=== PATIENT | male | born 1960 | race Caucasian/White ===

== ENCOUNTER 2021-08-15 10:36 | Day surgery (SDC) | payer OTHER ==
--- NOTE | 2021-08-08 07:51 | HP ---
DATE OF SURGERY: 08/15/2021 HISTORY OF PRESENT ILLNESS: The patient presents with swelling and infection on his lip. It appears to have been an infected pimple. He has been on some Keflex and it has improved some. It does have a head on it. He was prescribed Cipro. He will be evaluated prior to surgery to see if this is something that needs removed. PAST MEDICAL HISTORY: None. PAST SURGICAL HISTORY: Hernia. ALLERGIES: NKDA. MEDICATIONS: None. FAMILY HISTORY: None. SOCIAL HISTORY: None. REVIEW OF SYSTEMS: CONSTITUTIONAL: Denies fever or chills. CHEST: Denies shortness of breath. CVS: Denies chest pain. ABDOMEN: Denies abdominal pain. PHYSICAL EXAMINATION: GENERAL: No acute distress. CHEST: Nonlabored. No shortness of breath. CVS: Regular rate and rhythm. ABDOMEN: Soft, nontender. IMPRESSION: Lip cyst, lesion of the lip, nonhealing lesion of the lip consistent with likely just a pimple. PLAN: Excision of lesion of lip with Dr. Linus Root. As dictated by Tracey Rojas NP.
[~2021-08-15 10:36] MED LIST: XYLOCAINE 1% HCL 20 ML MDV ONE
[2021-08-15] MEDS ORDERED: Lactated Ringers 1,000 ML IV ONE (12:17)
[2021-08-15] MEDS ORDERED: Lactated Ringers 1,000 ML IV SCH (13:00)
[2021-08-15] MEDS ORDERED: Triple Antibiotic Ointment ONE (14:05)
[2021-08-15 14:50] VITALS: BP 144/91; PULSE 57; O2SAT 99
--- NOTE | 2021-08-16 11:46 | OP ---
SURGERY DATE: 08/15/2021 SURGERY TIME: 1350 PREOPERATIVE DIAGNOSIS: 1. LESION NASOLABIAL 1 CM. POSTOPERATIVE DIAGNOSIS: 1. LESION NASOLABIAL 1 CM. PROCEDURE: 1. Excision and closure. SURGEON: Linus Root M.D. ANESTHESIA: Local. INDICATION: Patient has this firm lesion right under, almost abutting the base of the nose on the upper lip. It is requiring excision. It is firm. It is indurated. Etiology is less than clear. OPERATIVE PROCEDURE: Taken to surgery. Marked preoperatively. Time-out performed. 1% Lidocaine elliptical excision. It was taken vertically along skin lines. It was closed with 5-0 Prolene simple interrupted sutures. Closed nicely. Pathology submitted.
== END 2021-08-15 14:30 | disposition home or self-care (01) ==
LOC: SDC 10:36
PROVIDERS: ATTEND Surgery
DX: J34.89 Other specified disorders of nose and nasal sinuses (principal)
CPT/HCPCS: A9270-GY